=== PATIENT | female | born 1950 | race Caucasian/White ===

== ENCOUNTER 2022-01-05 00:48 | Emergency (ER) | payer MEDICARE, BC ==
[2022-01-05] MEDS ORDERED: TYLENOL325 MG PO (03:39)
== END 2022-01-05 03:17 | disposition home or self-care (01) ==
LOC: ER1 00:48
DX: S52.591A Other fractures of lower end of right radius, initial encounter for closed fracture (principal); W01.0XXA Fall on same level from slipping, tripping and stumbling without subsequent striking against object, initial encounter
CPT/HCPCS: 29125; 73110; 99283